=== PATIENT | male | born 1945 | race Caucasian/White ===

== ENCOUNTER 2018-01-11 15:40 | Emergency (ER) | payer OTHER ==
[~2018-01-11 15:40] MED LIST: HYDR-2768 PO; METF500 PO; METO50TA PO; MOBI15TA PO; SIMV40 PO; TERA1CAP3 PO
[2018-01-11 16:48] VITALS: BP 142/73; PULSE 79; RESP 16; TEMP 98.6; O2SAT 98
[2018-01-11] MEDS ORDERED: SODIUM CHLORIDE 0.9% FLUSH 10 ML FLUSH IVF PRN (18:30)
[2018-01-11 19:01] LABS: AUTOMATED NEUTROPHIL # 9.5 TH/MM3 (1.8-7.7); BASOPHIL % 0.3 % (0.0-2.0); EOSINOPHIL % 0.3 % (0.0-4.0); HEMATOCRIT 38.2 % (39.0-51.0); HEMOGLOBIN 13.5 GM/DL (13.0-17.0); LYMPH % 17.4 % (9.0-44.0); LYMPHOCYTE # 2.2 TH/MM3 (1.0-4.8); MEAN CELL VOLUME 92.7 FL (80.0-100.0); MEAN CORPUSCULAR HEMOGLOBIN 32.7 PG (27.0-34.0); MEAN CORPUSCULAR HGB CONC 35.3 % (32.0-36.0); MEAN PLATELET VOLUME 10.5 FL (7.0-11.0); MONO % 7.4 % (0.0-8.0); MONOCYTE # 0.9 TH/MM3 (0-0.9); NEUT % 74.6 % (16.0-70.0); PLATELET COUNT 225 TH/MM3 (150-450); RED BLOOD COUNT 4.12 MIL/MM3 (4.50-5.90); RED CELL DISTRIBUTION WIDTH 12.1 % (11.6-17.2); WHITE BLOOD COUNT 12.8 TH/MM3 (4.0-11.0)
[2018-01-11 19:09] LABS: INTERNATIONAL NORMALIZED RATIO 1.1 RATIO; PROTHROMBIN TIME - PATIENT 10.7 SEC (9.8-11.6)
[2018-01-11 19:20] LABS: ALBUMIN 3.8 GM/DL (3.4-5.0); AST (GOT) 41 U/L (15-37); BICARBONATE 27.7 MEQ/L (21.0-32.0); BLOOD UREA NITROGEN 18 MG/DL (7-18); CALCIUM 9.4 MG/DL (8.5-10.1); CHLORIDE 101 MEQ/L (98-107); CREATININE 0.99 MG/DL (0.60-1.30); GLOMERULAR FILTRATION RATE 74 ML/MIN (>89); GLUCOSE,RANDOM 177 MG/DL (74-106); MAGNESIUM 1.8 MG/DL (1.5-2.5); SODIUM (NA) 139 MEQ/L (136-145)
[2018-01-11 19:21] LABS: ALT (GPT) 45 U/L (12-78)
[2018-01-11 19:25] LABS: ALKALINE PHOSPHATASE 56 U/L (45-117); TOTAL BILIRUBIN ADULT 0.4 MG/DL (0.2-1.0); TOTAL PROTEIN 7.3 GM/DL (6.4-8.2); TROPONIN I LESS THAN 0.02 NG/ML (0.02-0.05)
--- NOTE | 2018-01-11 19:44 | PD ---
HPI . Syncope Chief Complaint: Syncope/Near-Syncope Time Seen by Provider: 19:13 Travel History International Travel<30 days: No Contact w/Intl Traveler<30days: No Traveled to known affect area: No History of Present Illness HPI This patient presents with a chief complaint of syncope. He states that he had been at a home show and has felt fine all day. He, his and another couple breathing dinner when he suddenly felt very hazy. His states that he was extremely pale and diaphoretic. He then laid his head down on the table. The got up to go call 911 and the patient had a syncopal event. On the arrival of fire department a short time later, the patient was found to have a blood pressure of 83/48. He was given a fluid bolus by them. Subsequent blood pressures have been normal. His states it took probably 30 minutes for him to become completely normal again. The patient is now completely asymptomatic. He denies any chest pain or shortness of breath. He denies headache. The patient has a history of hypertension but states that there have been no recent changes to his medications. He has had no recent illnesses such as vomiting or diarrhea. He reports no excessive sweating. He has not had polyuria/polydipsia. He has not noted any blood in his stool. Patient reports a history of hypertension, diabetes and hyperlipidemia. His fingerstick blood sugar was checked at the scene and found to be > 100. PFSH Past Medical History Blood Disorders: No Cancer: No Diabetes: Yes Patient Takes Glucophage: No Diminished Hearing: No Diverticulitis: Yes Endocrine: No Gastrointestinal Disorders: No Genitourinary: No Hypertension: Yes Immune Disorder: No Musculoskeletal: No Neurologic: No Psychiatric: No Reproductive: No Respiratory: No Past Surgical History Abdominal Surgery: Yes (HERNIA) AICD: No Insulin Pump: No Joint Replacement: No Pacemaker: No Other Surgery: Yes (INGUINAL HERNIA) Social History Alcohol Use: Yes (3 SCOTCH DAY) Tobacco Use: No Substance Use: No Allergies-Medications (Allergen,Severity, Reaction): Coded Allergies: cephalexin (Unverified Allergy, Severe, 01/11/18) lisinopril (Unverified Allergy, Severe, Hives, 01/11/18) nifedipine (Unverified Adverse Reaction, Severe, Hives, 01/11/18) Reported Meds & Prescriptions Reported Meds & Active Scripts Active Reported Terazosin Hcl (Terazosin HCl) 1 Mg Cap 1 Mg PO HS Metoprolol Tartrate 50 mg (Metoprolol Tartrate) 50 Mg Tab 50 Mg PO BID Simvastatin 40 mg (Simvastatin) 40 Mg Tab 1 Tab PO DAILY Hctz (Hydrochlorothiazide) 25 Mg Tab 25 Mg PO DAILY Mobic (Meloxicam) 15 Mg Tab 15 Mg PO DAILY Glucophage 500 mg (Metformin HCl) 500 Mg Tab 500 Mg PO DAILY Review of Systems Except as stated in HPI: all other systems reviewed are Neg Eyes: Positive: Other (hazy vision prior to the syncopal event) HENT: Positive: Lightheadedness Cardiovascular: No: Chest Pain or Discomfort, Palpitations Respiratory: No: Shortness of Breath Gastrointestinal: No: Nausea, Vomiting, Diarrhea, Hematemesis, Hematochezia Neurologic: Positive: Syncope, No: Incontinence Physical Exam Narrative GENERAL: Healthy-appearing 73-year-old man who is in no distress. SKIN: warm/dry. Good color. HEAD: Normocephalic. Atraumatic. EYES: Pupils equal and round. No scleral icterus. No injection or drainage. ENT: No nasal bleeding or discharge. Mucous membranes pink and moist. NECK: Trachea midline. Full range of motion without pain.. CARDIOVASCULAR: Regular rate and rhythm. Heart sounds are normal. RESPIRATORY: No accessory muscle use. Clear to auscultation. Breath sounds equal bilaterally. GASTROINTESTINAL: Abdomen soft. Nontender. Bowel sounds present. Nondistended. MUSCULOSKELETAL: No obvious deformities. NEUROLOGICAL: Awake and alert. No obvious cranial nerve deficits. Motor grossly within normal limits. Normal speech. PSYCHIATRIC: Appropriate mood and affect; insight and judgment normal. Data Data Last Documented VS Vital Signs Date Time Temp Pulse Resp B/P (MAP) Pulse Ox O2 Delivery O2 Flow Rate FiO2 01/11/18 18:06 85 97 Room Air 01/11/18 16:48 98.6 16 142/73 (96) Orders Orders Electrocardiogram (01/11/18 18:22) Complete Blood Count With Diff (01/11/18 18:22) Comprehensive Metabolic Panel (01/11/18 18:22) Magnesium (Mg) (01/11/18 18:22) Ckmb (Isoenzyme) Profile (01/11/18 18:22) Troponin I (01/11/18 18:22) Act Partial Throm Time (Ptt) (01/11/18 18:22) Prothrombin Time / Inr (Pt) (01/11/18 18:22) Chest, Single Ap (01/11/18 18:22) Ecg Monitoring (01/11/18 18:22) Iv Access Insert/Monitor (01/11/18 18:22) Oximetry (01/11/18 18:22) Sodium Chloride 0.9% Flush (Ns Flush) (01/11/18 18:30) Alcohol (Ethanol) (01/11/18 18:22) Labs Laboratory Tests Test 01/11/18 18:30 White Blood Count 12.8 TH/MM3 Red Blood Count 4.12 MIL/MM3 Hemoglobin 13.5 GM/DL Hematocrit 38.2 % Mean Corpuscular Volume 92.7 FL Mean Corpuscular Hemoglobin 32.7 PG Mean Corpuscular Hemoglobin Concent 35.3 % Red Cell Distribution Width 12.1 % Platelet Count 225 TH/MM3 Mean Platelet Volume 10.5 FL Neutrophils (%) (Auto) 74.6 % Lymphocytes (%) (Auto) 17.4 % Monocytes (%) (Auto) 7.4 % Eosinophils (%) (Auto) 0.3 % Basophils (%) (Auto) 0.3 % Neutrophils # (Auto) 9.5 TH/MM3 Lymphocytes # (Auto) 2.2 TH/MM3 Monocytes # (Auto) 0.9 TH/MM3 Eosinophils # (Auto) 0.0 TH/MM3 Basophils # (Auto) 0.0 TH/MM3 CBC Comment DIFF FINAL Differential Comment Prothrombin Time 10.7 SEC Prothromb Time International Ratio 1.1 RATIO Activated Partial Thromboplast Time 22.5 SEC Blood Urea Nitrogen 18 MG/DL Creatinine 0.99 MG/DL Random Glucose 177 MG/DL Total Protein 7.3 GM/DL Albumin 3.8 GM/DL Calcium Level 9.4 MG/DL Magnesium Level 1.8 MG/DL Alkaline Phosphatase 56 U/L Aspartate Amino Transf (AST/SGOT) 41 U/L Alanine Aminotransferase (ALT/SGPT) 45 U/L Total Bilirubin 0.4 MG/DL Sodium Level 139 MEQ/L Potassium Level 3.7 MEQ/L Chloride Level 101 MEQ/L Carbon Dioxide Level 27.7 MEQ/L Anion Gap 10 MEQ/L Estimat Glomerular Filtration Rate 74 ML/MIN Total Creatine Kinase 42 U/L Troponin I LESS THAN 0.02 NG/ML Ethyl Alcohol Level LESS THAN 3 MG/DL MDM Medical Decision Making Medical Screen Exam Complete: Yes Emergency Medical Condition: Yes Interpretation(s) EKG shows a sinus rhythm with no ST segment elevation or depression. This is actually a normal EKG. Differential Diagnosis My differential diagnosis of syncope includes but is not limited to cardiac arrhythmia, hypovolemia, anemia, neurological catastrophe, vasovagal response Narrative Course This patient presents with a chief complaint of syncope. He had a low blood pressure reported by the fire department on the scene. He was treated with IV fluids. He is now completely asymptomatic. CBC & BMP Diagram 01/11/18 18:30 Total Protein 7.3, Albumin 3.8, Calcium Level 9.4, Magnesium Level 1.8, Alkaline Phosphatase 56, Aspartate Amino Transf (AST/SGOT) 41 H, Alanine Aminotransferase (ALT/SGPT) 45, Total Bilirubin 0.4 trop < 0.02 Chest x-ray was reviewed by me and showed no infiltrate, pulmonary edema, pneumothorax. Admission for observation was discussed with the patient. He has declined. He states that he is able to follow up with his primary care provider which is the [facility]. He will return here for any change in his symptoms. Diagnosis Primary Impression: Syncope Qualified Codes: R55 - Syncope and collapse Patient Instructions: General Instructions, Syncope (DC) Additional Instructions: Return here if symptoms recur. Otherwise, follow-up with your doctor next week. Disposition: 01 DISCHARGE HOME Condition: Stable Caroline Bello MD Jan 11, 2018 19:43
--- NOTE | 2018-01-11 19:46 | RADRPT ---
EXAM DATE/TIME: 01/11/2018 18:41 [facility] COMPARISON: No previous studies available for comparison. INDICATIONS : Patient states that he has syncopal episode, with chest palpitations. MEDICAL HISTORY : Hypertension. Diverticulitis. SURGICAL HISTORY : None. hernia repair ENCOUNTER: Initial ACUITY: 1 day PAIN SCORE: 0/10 LOCATION: chest FINDINGS: A single view of the chest demonstrates the lungs to be symmetrically aerated without evidence of mas s, infiltrate or effusion. The cardiomediastinal contours are unremarkable. Osseous structures are intact. CONCLUSION: No acute disease. Ismael Sow MD on January 11, 2018 at 19:44 Board Certified Radiologist. This report was verified electronically.
--- NOTE | 2018-01-12 19:26 | EKG ---
Date Performed: 01/11/2018 Time Performed: 18:48:37 PTAGE: 73 years EKG: Sinus rhythm NORMAL ECG Since PREVIOUS TRACING , no significant change noted PREVIOUS TRACIN10/21/2005 02.02 DOCTOR: Cooper Collado Interpretating Date/Time 01/12/2018 19:23:53
== END 2018-01-11 20:06 | disposition home or self-care (01) ==
LOC: NEPC 15:40
DX: R55 Syncope and collapse (principal); I10 Essential (primary) hypertension; E11.9 Type 2 diabetes mellitus without complications; E78.5 Hyperlipidemia, unspecified; Z88.8 Allergy status to other drugs, medicaments and biological substances; Z79.84 Long term (current) use of oral hypoglycemic drugs; Z79.899 Other long term (current) drug therapy
CPT/HCPCS: 71045; 80053; 80307; 82550; 83735; 84484; 85025; 85610; 85730; 93005